=== PATIENT | male | born 1945 | race Caucasian/White ===

== ENCOUNTER 2020-02-11 08:14 | Outpatient (CLI) | payer OTHER ==
[~2020-02-11 08:14] MED LIST: LIPITOR20 MG
== END 2020-02-11 10:01 | disposition home or self-care (01) ==
LOC: LAB 08:14
DX: Z20.828 Contact with and (suspected) exposure to other viral communicable diseases (principal)

== ENCOUNTER 2020-03-11 00:31 | Outpatient (CLI) | payer OTHER | END 2020-03-11 15:16 | disposition home or self-care (01) | LOC: PPH VACUNA 00:31 | PROVIDERS: ATTEND Emergency Medicine Pediatric Emergency Medicine | DX: Z23 Encounter for immunization (principal) ==

== ENCOUNTER → 2020-03-25 | Outpatient (CLI) | payer OTHER | END | disposition home or self-care (01) | LOC: MRI 06:48 | PROVIDERS: ATTEND Orthopaedic Surgery Adult Reconstructive Orthopaedic Surgery | DX: S83.232A Complex tear of medial meniscus, current injury, left knee, initial encounter (principal) | CPT/HCPCS: 73721 ==

== ENCOUNTER 2020-05-01 10:55 | Outpatient (CLI) | payer OTHER | END 2020-05-01 10:56 | disposition home or self-care (01) | LOC: LAB 10:55 | DX: E11.9 Type 2 diabetes mellitus without complications (principal) ==

== ENCOUNTER 2021-06-15 08:00 | Outpatient (CLI) | payer OTHER | END 2021-06-15 08:30 | disposition home or self-care (01) | LOC: PPH VACUNA 08:00 | PROVIDERS: ATTEND Emergency Medicine Pediatric Emergency Medicine | DX: Z23 Encounter for immunization (principal) ==

== ENCOUNTER 2022-01-27 09:46 | Outpatient (CLI) | payer OTHER | END 2022-01-27 09:59 | disposition home or self-care (01) | LOC: LAB 09:46 | DX: I10 Essential (primary) hypertension (principal); R73.9 Hyperglycemia, unspecified; E55.9 Vitamin D deficiency, unspecified ==

== ENCOUNTER 2022-12-21 10:59 | Outpatient (CLI) | payer OTHER | END 2022-12-21 11:10 | disposition home or self-care (01) | LOC: RAD 10:59 | PROVIDERS: ATTEND Family Medicine | DX: J01.90 Acute sinusitis, unspecified (principal) ==

== ENCOUNTER 2024-07-31 07:06 | Outpatient (CLI) | payer OTHER | END 2024-07-31 07:20 | disposition home or self-care (01) | LOC: TOM 07:06 | DX: C61 Malignant neoplasm of prostate (principal); Z90.79 Acquired absence of other genital organ(s) ==